=== PATIENT | male | born 1965 | race Caucasian/White ===

== ENCOUNTER 2020-07-25 11:00 | Outpatient (RCR) | payer OTHER, SELFPAY ==
--- NOTE | 2020-07-11 14:58 | XR_ITS ---
EXAMINATION: XR TOES, LEFT CLINICAL INFORMATION: Rule out ostial COMPARISON: None TECHNIQUE: 3 views of the left first toe. FINDINGS: A small dressing is seen overlying the left first distal phalanx. There is some soft tissue swelling present. Along the medial aspect of the distal first phalanx there appears to be some erosive change suggestive of osteomyelitis. No prior studies available for comparison and I cannot tell whether this may be postoperative or related to chronic osteomyelitis. No radiopaque foreign body. IMPRESSION: Appearance of some cortical destruction and erosive change anteromedial aspect distal left first toe suspicious for acute osteomyelitis.
== END 2020-11-05 13:22 | disposition home or self-care (01) ==
LOC: HO.WCC 11:00
PROVIDERS: PCP Internal Medicine; Visit Provider Surgery
DX: L89.623 Pressure ulcer of left heel, stage 3 (principal); L97.522 Non-pressure chronic ulcer of other part of left foot with fat layer exposed; M86.472 Chronic osteomyelitis with draining sinus, left ankle and foot; G90.09 Other idiopathic peripheral autonomic neuropathy; I73.9 Peripheral vascular disease, unspecified; L84 Corns and callosities; L08.9 Local infection of the skin and subcutaneous tissue, unspecified; H54.7 Unspecified visual loss; I10 Essential (primary) hypertension; Z79.899 Other long term (current) drug therapy; Z79.2 Long term (current) use of antibiotics
CPT/HCPCS: 11042; 11044; 73660; 87071; 87147; 87205; 97597; 99183; 99212; 99213; 99214

== ENCOUNTER 2020-07-25 11:41 | Outpatient (REF) | payer OTHER, SELFPAY ==
--- NOTE | 2020-07-25 | XR_ITS ---
EXAMINATION: XR CHEST CLINICAL INFORMATION: Preprocedure. COMPARISON: None TECHNIQUE: 2 views of the chest were obtained. FINDINGS: No significant abnormality is noted involving the heart, lungs, mediastinum, bony thorax or soft tissues. XR/XR chest 2V IMPRESSION: Unremarkable chest examination.
[2020-07-25 14:22] LABS: Erythrocyte Sedimentation Rate 20 MM/HR (0-15)
== END 2020-07-25 11:42 | disposition home or self-care (01) ==
LOC: HO.LAB 11:41
PROVIDERS: PCP Family Medicine; Visit Provider Physician Assistant Surgical
DX: Z01.818 Encounter for other preprocedural examination (principal)
CPT/HCPCS: 36415; 71046; 84134; 85652; 86140; 87071; 87077; 87147; 87186; 87205

== ENCOUNTER 2020-08-14 13:24 | Outpatient (REF) | payer OTHER, SELFPAY ==
--- NOTE | 2020-08-14 | US_ITS ---
EXAMINATION: BILATERAL LOWER EXTREMITY DUPLEX Quentin Andrade MD CLINICAL INFORMATION: History of peripheral vascular disease. TECHNIQUE: Real-time ultrasound and Doppler techniques (integrating B-mode 2-D vascular images, Doppler spectral analysis and color flow Doppler imaging) were utilized to interrogate the lower extremities. COMPARISON: None FINDINGS: RIGHT LEG: Common femoral artery: 106 cm/s, biphasic Profunda femoris artery: 49.9 cm/s, biphasic Superficial femoral artery (proximal): 76.2 cm/s, biphasic Superficial femoral artery (mid): 83.8 cm/s, biphasic Superficial femoral artery (distal): 69.8 cm/s, biphasic Popliteal artery: 78.6 cm/s, biphasic Posterior tibial artery: 121 cm/s, triphasic LEFT LEG: Common femoral artery: 98.5 cm/s, triphasic Profunda femoris artery: 59.7 cm/s, biphasic Superficial femoral artery (proximal): 111 cm/s, triphasic Superficial femoral artery (mid): 113 cm/s, triphasic Superficial femoral artery (distal): 91.5 cm/s, triphasic Popliteal artery: 61.7 cm/s, triphasic Posterior tibial artery: 68.4 cm/s, triphasic Mild atherosclerosis disease is present bilaterally, predominantly seen involving the bilateral common femoral artery and popliteal arteries. US/US arterial duplex LE BI IMPRESSION: No evidence of hemodynamically significant stenosis involving either lower extremity. Mild atherosclerosis.
== END 2020-08-14 13:25 | disposition home or self-care (01) ==
LOC: HO.US 13:24
PROVIDERS: Visit Provider Physician Assistant Surgical
DX: L89.613 Pressure ulcer of right heel, stage 3 (principal); L89.623 Pressure ulcer of left heel, stage 3; M86.072 Acute hematogenous osteomyelitis, left ankle and foot; L03.116 Cellulitis of left lower limb; I73.9 Peripheral vascular disease, unspecified; G90.09 Other idiopathic peripheral autonomic neuropathy; L97.522 Non-pressure chronic ulcer of other part of left foot with fat layer exposed
CPT/HCPCS: 93925

== ENCOUNTER 2020-11-17 07:55 | Outpatient (REF) | payer OTHER, SELFPAY ==
--- NOTE | ~2020-11-17 | XR_ITS ---
EXAMINATION: XR TOES, LEFT CLINICAL INFORMATION: Left great toe ulcer COMPARISON: 07/11/2020 TECHNIQUE: 3 views of the left toes were obtained. FINDINGS: There is erosion of the distal tuft of the first distal phalanx with adjacent periosteal reaction. There is overlying soft tissue irregularity. These findings have progressed from the prior study 07/11/2020. Mild first metacarpophalangeal joint arthrosis. Normal tarsal metatarsal alignment. XR/XR toe LT min 2V IMPRESSION: Worsened, progressed erosion of the distal tuft of the first distal phalanx with adjacent periosteal reaction, consistent with progression of changes secondary to osteomyelitis.
== END 2020-11-17 07:56 | disposition home or self-care (01) ==
LOC: HO.XRAY 07:55
PROVIDERS: Visit Provider Physician Assistant
DX: L97.529 Non-pressure chronic ulcer of other part of left foot with unspecified severity (principal)
CPT/HCPCS: 73660